=== PATIENT | female | born 2005 | race African-American/Black ===

== ENCOUNTER 2023-10-02 19:50 | Emergency (ER) | payer MEDICAID, SELFPAY ==
--- NOTE | ~2023-10-02 | CT_ITS ---
CT of the Abdomen and Pelvis: Indication: Abdominal pain Technique: 2.5 mm axial scans were obtained through the abdomen and pelvis following intravenous adm inistration of 100 cc of Omnipaque 350. Dose reduction technique was used on this scan by utilizing a utomated exposure control and iterative reconstruction technique. The dose-length product (DLP) was 3 30.56 mGy-cm. Findings: Scans through the lung bases are unremarkable. The liver, spleen, pancreas, gallbladder, adrenals and kidneys are within normal limits. No evidence of aortic aneurysm. No lymphadenopathy. No bowel obstruction or bowel wall thickening. There is no evidence to suggest acute appendicitis. Images through the pelvis were performed. Urinary bladder unremarkable. No pelvic mass seen. No ascit es. Impression: No significant abnormalities seen. Reviewed, dictated and finalized at [facility]. AID Impression: No significant abnormalities seen.
[2023-10-02 19:56] VITALS: BP 118/76; PULSE 67; RESP 15; TEMP 36.3; O2SAT 100
[2023-10-02 20:07] LABS: Basophils Percent Auto 0.3 % (0.2-1.2); Hematocrit 36.9 % (37.0-47.0); Hemoglobin 11.5 g/dL (12.0-15.0); Immature Granulocyte Absolute 0.01 K/mm3 (0.00-0.031); Immature Granulocyte Percent A 0.1 % (0-0.5); Lymphocytes Absolute Auto 0.73 K/mm3 (0.9-3.2); Lymphocytes Percent Auto 8.4 % (18.3-44.2); Mean Corpuscular HGB Conc 31.2 g/dl (32-36); Mean Corpuscular Volume 89.8 fl (80-100); Mean Platelet Volume 10.2 fl (7.4-10.4); Monocytes Absolute Auto 0.2 K/mm3 (0.1-0.6); Monocytes Percent Auto 2.2 % (2.6-8.5); Neutrophils Absolute Auto 7.7 K/mm3 (1.3-6.7); Platelet Count Result 263 k/mm3 (150-375); Red Blood Count 4.11 M/mm3 (4.2-5.4); Red Cell Distribution Width 13.5 % (11.5-14.5); White Blood Count 8.7 K/mm3 (4.5-10.0)
[2023-10-02 20:18] LABS: Alanine Aminotransferase 24 U/L (6-35); Albumin Level 4.9 g/dL (3.7-5.6); Alkaline Phosphatase 60 U/L (45-116); Anion Gap 13 mmol/L (8-16); Aspartate Amino Transferase 37 U/L (14-36); Bilirubin,Total 0.5 mg/dL (0.2-1.3); Blood Urea Nitrogen 7 mg/dL (8-21); Calcium 9.4 mg/dL (8.9-10.7); Carbon Dioxide 16 mmol/L (22-30); Chloride 110 mmol/L (98-107); Estimated CRCL calculation 112 ml/min; Estimated Glomerular Filt Rate > 60; Glucose 110 mg/dL (65-110); Lipase 71 U/L (23-300); Potassium 3.7 mmol/L (3.4-5.0); Sodium 139 mmol/L (134-143)
[2023-10-02 22:06] LABS: Appearance Urine Clear (Clear); Bacteria Urine None Seen /hpf; Bilirubin Urine Negative (Negative); Blood Urine 2+ (Negative); Color Urine Yellow (Yellow); Glucose Urine UA Negative (Negative); Ketones Urine 4+ mg/dL (Negative); Leukocyte Esterase Ur Negative LEU/UL (Negative); Nitrate Urine Negative (Negative); Protein Urine 2+ mg/dL (Negative); RBC Urine 0-2 /hpf (0-2); Specific Grav Ur 1.026 (1.001-1.035); Squamous Epithelial Cell Urine None seen /hpf (Few); WBC Urine 0-5 /hpf
[2023-10-02 22:21] LABS: Add Urine Microscopic? YES
[2023-10-03 02:59] VITALS: BP 117/74; PULSE 64; RESP 21; O2SAT 100
[2023-10-03] MEDS: MORPHINE SULFATE (*CRX) 4 MG/ML INJ IV PUSH (02:59)
[2023-10-03] MEDS: SODIUM CHLORIDE 0.9% IV 1,000 ML 999 ML IV CONT (02:59)
--- NOTE | 2023-10-03 04:57 | ED.GENADULT ---
HPI - General Adult General Chief complaint: Nausea/Vomiting/Diarrhea Stated complaint: nausea/abdominal pain/diarrhea Time Seen by Provider: 10/03/23 02:48 History of Present Illness HPI narrative: Patient is a 17-year-old female who presents emergency department chief complaint of nausea vomiting diarrhea and lower abdominal pain patient reports been going on for approximately 12 hours had about 10 episodes of vomiting and 5 episodes of diarrhea. Patient reports no fever reports that she is currently on her menstrual cycle. Related Data Allergies Allergy/AdvReac Type Severity Reaction Status Date / Time No Known Allergies Allergy Verified 10/03/23 04:14 Review of Systems Review of Systems: A 10 system review of systems was completed on the patient and is negative except for what is stated in the HPI. Nursing and ancillary documentation was reviewed. Exam Narrative: GENERAL: Well-appearing, well-nourished, and in no acute distress. HEAD: Normocephalic, atraumatic. EYES: PERRLA and EOMI. ENT: Nares clear, no rhinorrhea or epistaxis. Mucous membranes moist. NECK: Supple. CHEST: Clear to auscultation. No respiratory distress. HEART: Regular rate and rhythm. No murmur heard. Normal peripheral pulses. ABDOMEN: Soft, mild tenderness to palpation throughout the abdomen, nondistended, normal active bowel sounds. EXTREMITIES: Normal range of motion. No edema. SKIN: Warm, dry, no rash. NEURO: No focal deficits. Alert and oriented x3. PSYCH: Normal mood and affect. Course Vital Signs Vital signs: Vital Signs Temperature 36.3 C L 10/02/23 19:56 Pulse Rate 67 10/02/23 19:56 Respiratory Rate 15 10/02/23 19:56 Blood Pressure 118/76 10/02/23 19:56 Pulse Oximetry 100 10/02/23 19:56 Oxygen Delivery Room Air 10/02/23 19:56 Temperature 36.3 C L 10/02/23 19:56 Pulse Rate 67 10/02/23 19:56 Respiratory Rate 15 10/02/23 19:56 Blood Pressure 118/76 10/02/23 19:56 Pulse Oximetry 100 10/02/23 19:56 Oxygen Delivery Room Air 10/02/23 19:56 Medical Decision Making [facility] Narrative Medical decision making narrative: Differential diagnosis includes gastroenteritis, colitis, diverticulitis, appendicitis Laboratory studies were obtained that showed a normal CBC normal CMP urinalysis showed no evidence UTI. CT scan of the abdomen pelvis showed no acute intra-abdominal pathology there was evidence of gastroenteritis Patient received IV fluids and received antiemetics and is feeling much better at this time patient be discharged home on antispasmodics and antiemetics Vital Signs Vital Signs: Vital Signs Temperature 36.3 C L 10/02/23 19:56 Pulse Rate 67 10/02/23 19:56 Respiratory Rate 15 10/02/23 19:56 Blood Pressure 118/76 10/02/23 19:56 Pulse Oximetry 100 10/02/23 19:56 Oxygen Delivery Room Air 10/02/23 19:56 Temperature 36.3 C L 10/02/23 19:56 Pulse Rate 67 10/02/23 19:56 Respiratory Rate 15 10/02/23 19:56 Blood Pressure 118/76 10/02/23 19:56 Pulse Oximetry 100 10/02/23 19:56 Oxygen Delivery Room Air 10/02/23 19:56 Lab Data 10/02/23 20:01 10/02/23 20:01 Labs: Lab Results 10/02/23 10/02/23 Range/Units 20:01 21:49 WBC 8.7 (4.5-10.0) K/mm3 RBC 4.11 L (4.2-5.4) M/mm3 Hgb 11.5 L (12.0-15.0) g/dL Hct 36.9 L (37.0-47.0) % MCV 89.8 (80-100) fl MCH 28.0 (26-34) pg MCHC 31.2 L (32-36) g/dl RDW 13.5 (11.5-14.5) % Plt Count 263 (150-375) k/mm3 MPV 10.2 (7.4-10.4) fl Immature Gran % (Auto) 0.1 (0-0.5) % Neut % (Auto) 89.0 H (45.5-73.1) % Lymph % (Auto) 8.4 L (18.3-44.2) % Hyde % (Auto) 2.2 L (2.6-8.5) % Eos % (Auto) 0.0 (0-4.4) % Baso % (Auto) 0.3 (0.2-1.2) % Lymph # (Auto) 0.73 L (0.9-3.2) K/mm3 Hyde # (Auto) 0.2 (0.1-0.6) K/mm3 Eos # (Auto) 0.0 (0-0.3) K/mm3 Baso # (Auto) 0.0 (0.0-0.1) K/mm3 Abs Immat Gran (auto) 0.0
[2023-10-03 05:31] VITALS: BP 110/64; PULSE 62; RESP 14; O2SAT 98
== END 2023-10-03 05:34 | disposition home or self-care (01) ==
PROVIDERS: Emergency Provider Emergency Medicine
DX: K52.9 Noninfective gastroenteritis and colitis, unspecified (principal)
CPT/HCPCS: 36415; 74177; 80053; 81001; 81025; 83690; 85025; 96361; 96374; 99284; J2270; J7030; Q9967